=== PATIENT | male | born 1940 | race Caucasian/White ===

== ENCOUNTER 2018-12-06 11:32 | Inpatient (IN) ==
[2018-12-06] MEDS ORDERED: PROTONIX IV ONE (11:57)
[2018-12-06] MEDS ORDERED: SODIUM CHLORIDE 0.9% INJ ONE (11:57)
[2018-12-06] MEDS ORDERED: CARAFATE LIQUID PO ONE (11:57)
[2018-12-06 12:39] LABS: BASO# 0.02 X1000 (0.0-0.2); BASO% 0.2 % (0.0-0.8); EOS# 0.04 X1000 (0.0-0.7); EOS% 0.4 % (0.0-10.0); HEMATOCRIT 37.4 % (42.0-52.0); IMM GRAN# 0.02 X1000 (0.0-0.04); IMM GRAN% 0.2 % (0.0-0.5); LYMPH# 1.85 X1000 (1.2-3.4); LYMPH% 17.9 % (20.5-51.1); MCHC 34.8 g/dL (33-37); MCV 92.1 FL (81-99); MONO% 7.7 % (1.7-9.3); MPV 10.3 FL (7.4-10.4); NEUT# 7.61 X1000 (1.4-6.5); NEUT% 73.6 % (42.2-75.2); PLT 269 X1000 (130-400); RBC 4.06 XMIL (4.7-6.1); RDW 12.4 % (11.5-14.5); WBC 10.34 X1000 (4.8-10.8)
[2018-12-06 12:59] LABS: ALBUMIN 3.8 g/dL (3.5-5.0); CALCIUM 9.1 mg/dL (8.8-10.2); CREATININE 1.3 mg/dL (0.7-1.2); POTASSIUM 3.6 mmol/L (3.5-5.1); TOTAL PROTEIN 7.5 g/dL (6.3-8.3)
[2018-12-06 13:09] LABS: INR 1.1; PROTIME 14.8 Seconds (11.0-16.0)
[2018-12-06] MEDS ORDERED: ZOFRAN IV PRN ×2 (13:35→16:42)
--- NOTE | 2018-12-06 13:56 | PROVIDER DOCUMENTATION ---
This chart was entered by Earlene Suh Scribe, acting as scribe for Carolyn Rosales MD. HPI-Abdominal Pain/GI Problem - General Chief Complaint: Rectal Bleeding Stated Complaint: BLOOD IN STOOL Time Seen by Provider: 12/06/18 11:39 Source: patient, family () Allergies/Adverse Reactions: Patient Allergies Allergy/AdvReac Type Severity Reaction Status Date / Time lisinopril Allergy SWELLING Verified 12/06/18 12:18 Home Medications: Home Medication List Medication Instructions Recorded Confirmed Last Taken Type Aspirin [Aspirin EC] 325 mg PO DAILY 10/21/17 12/06/18 07/11/18 History PRAVAstatin [Pravachol] 40 mg PO QHS 10/21/17 12/06/18 07/12/18 History Carvedilol [Coreg] 6.25 mg PO BID 01/16/18 12/06/18 07/14/18 05:00 History Fluconazole [Diflucan] 100 mg PO DAILY #22 tab 07/14/18 Unknown Rx Omeprazole [Prilosec] 40 mg PO BID #60 capsule.dr 07/14/18 12/06/18 Unknown Rx Sucralfate [Carafate] 1 gm PO 4XDAY #120 tab 07/14/18 12/06/18 Unknown Rx Isosorbide Mononitrate [Isosorbide 30 mg PO DAILY 12/06/18 12/06/18 Unknown History Mononitrate ER] - History of Present Illness-ABD Nature of Presenting Problems: 77 yowm presents to the ed with c/o rectal bleeding with abdominal pain onset 4 days prior. pt is nontoxic in appearance pt takes 325 ASA daily Abdominal Pain Onset Location: reports: epigastric Pain Radiation: reports: no radiation Quality of Pain: reports: cramping Severity in ED: reports: mild Onset/Duration: reports: 4 days ago Timing: reports: still present Activities at Onset: reports: light activity Exposure to sick contacts?: No Modifying Factors: improves with: nothing Associated Symptoms: reports: EENT symptoms (trouble with swallowing), genitourinary problems (rectal bleeding), nausea. denies: back/neck pain, chest pain, cough, shortness of breath, swelling/mass in abdomen, vomiting Last BM: this morning Dark Stools Present?: reports: black, tarry Rectal Bleeding: reports: blood mixed with stool # of Diarrhea Episodes: 0 Rectal Pain: reports: none # of Vomiting Episodes: 0 Emesis Description: reports: none Bruising or Bleeding Gums?: No Similar Symptoms Previously?: Yes (had GI bleed in past) Recently seen or treated by another doctor?: No Review of Systems - Adult - REVIEW OF SYSTEMS - ADULT Constitutional: denies: chills, fever Eyes: reports: no symptoms reported Ears, Nose, Mouth & Throat: reports: see HPI, other (hard to swallow). denies: throat pain, throat swelling Cardiovascular: reports: no symptoms reported Respiratory: denies: cough, shortness of breath, wheezing Gastrointestinal: reports: see HPI, abdominal pain (epigastric), nausea, rectal bleeding. denies: diarrhea, vomiting Genitourinary: reports: no symptoms reported Musculoskeletal: denies: back pain, neck pain Integumentary: reports: no symptoms reported Neurological: denies: dizziness/vertigo, headache/migraines Psychiatric: reports: no symptoms reported Endocrine: reports: no symptoms reported Hematologic/Lymphatic: reports: no symptoms reported Allergic/Immunologic: reports: no symptoms reported All Other Systems: Reviewed and Negative Past History - Adult - PAST MEDICAL HISTORY-ADULT Review of Records: reports: Old Records Reviewed, Nursing Assessment Review, Medications Reviewed, Social history reviewed & non-contributory. Major Childhood Illnesses: reports: denies history Cardiovascular: reports: cardiac disease, HTN, hyperlipidemia Respiratory: reports: denies history Gastrointestinal: reports: GERD, GI bleed, ulcer Genitourinary: reports: denies history Musculoskeletal: reports: denies history Neurological: reports: denies history Endocrine/Immune: reports: denies history Other Conditions: reports: denies history - PRIOR SURGERIES/PROCEDURES Surgical/Procedure History: reports: CABG, back/neck - IMMUNIZATION STATUS Childhood Immunizations: See Nurse Assessment Flu Vaccine: See Nurse Assessment - FAMILY HISTORY Family History: reviewed, not pertinent - SOCIAL HISTORY Smoking: denies Substance Use: denies Living Situation: family Physical Exam-General - PHYSICAL EXAM-ADULT Initial Vital Signs Reviewed: Yes - CONSTITUTIONAL General Appearance: appears well, alert, no apparent distress - EYES Eyes: PERRL/EOMI, pink conjunctivae - HEAD, EARS, NOSE, MOUTH & THROAT HENMT: moist mucous membranes, normal ENT inspection, TMs normal, pharynx normal - NECK Neck: non-tender, full range of motion, supple, normal inspection - RESPIRATORY Respiratory: chest non-tender, lungs clear, normal breath sounds - CARDIOVASCULAR Cardiovascular: normal peripheral pulses, tachycardia (108) - GASTROINTESTINAL (ABDOMEN) Abdominal Exam: normal bowel sounds, soft, tenderness (epigastric), other - GENITOURINARY Male Genitalia: deferred Rectal Exam: normal rectal tone, black stool, other (black tarry stool per rectum). negative: normal exam, hemorrhoids, tenderness Hemoccult Exam: heme positive stool - LYMPHATIC Lymphatic: no adenopathy - MUSCULOSKELETAL Back Exam: normal inspection, no CVA tenderness, no vertebral tenderness Extremity: normal range of motion, non-tender, normal inspection, no pedal edema , no calf tenderness, normal capillary refill, pelvis stable - SKIN Integumentary: normal color, normal turgor, warm/dry - NEUROLOGIC Neurologic: grossly normal, no motor/sensory deficits - PSYCHIATRIC Psych/Mental Status: normal mood/affect, normal thought content, normal thought process, oriented x 3 Progress - PLAN OF CARE/RESULTS Progress/Plan/Lab Results: Vital Signs - 8 hr 12/06/18 11:34 12/06/18 11:52 Pulse Rate 108 H 90 Respiratory Rate 18 24 Blood Pressure 139/87 152/100 O2 Sat by Pulse Oximetry 98 95 Orders Category Date Time Status CBC WITH ELECTRONIC DIFF [HEME] Stat Lab 12/06/18 11:55 Uncollected COMPREHENSIVE METABOLIC PANEL [CHEM] Stat Lab 12/06/18 11:55 Ordered PROTIME WITH INR [COAG] Stat Lab 12/06/18 11:56 Uncollected PTT HEPARIN PROTOCOL [COAG] Stat Lab 12/06/18 11:56 Ordered Result Diagrams: 12/06/18 12:00 12/06/18 12:00 - CONSULTS/PCP/HOSPITALIST Notification #1 *Consult/PCP/Hospitalist*: Arielle Time Discussed: 13:14 Reason/Comments: admission Consult Disposition: Admit Departure - Departure Date of Disposition Decision: 12/06/18 Time of Disposition Decision: 13:10 DIAGNOSIS: Upper GI bleed Disposition: ADMITTED INPATIENT 09 Certified Medical Emergency: Emergent Condition: Good Referrals and Follow-Ups: Eron Finney [Primary Care Provider] - - Critical Care Note This patient required my direct & personal management of CC.: Yes Total Time (mins): 39 Critical Care Statement: This patient required my direct personal management to treat or rule out processes, the absence of which, could potentiallly result in sudden, clinically significant life or limb threatening deterioration. Attestation - Physician/ BENJY Attestation Patient care was provided by Advanced Practice Provider:: Yes Advanced Practice Provider documentation review:: The Mid-level provider documentation, treatment plan and medical decision making was reviewed by the physician who agrees with all treatment and medical decision making by the MLP. The physician spent face to face time with patient:: No Advanced Practice Provider documentation review:: Supervising physician onsite and consulted in the evaluation and care of this patient. The physician did not have a face to face encounter with the patient. This chart was documented by the indicated scribe, (Earlene Suh Scribe) and accurately reflects the services I performed and decisions made by me, Carolyn Rosales MD, as attested by the provider's signature.
[2018-12-06] MEDS ORDERED: PROTONIX 80 MG in NS 80 ML IV SCH (14:00)
[2018-12-06] MEDS ORDERED: NS 1,000 ML IV ONE (14:56)
[2018-12-06 15:06] LABS: HEMATOCRIT 34.9 % (42.0-52.0); HEMOGLOBIN 12.1 g/dL (14.0-18.0)
[2018-12-06] MEDS ORDERED: CARAFATE PO SCH ×2 (16:00→21:00)
[2018-12-06 17:36] LABS: HEMATOCRIT 35.8 % (42.0-52.0); HEMOGLOBIN 12.2 g/dL (14.0-18.0)
[2018-12-06] MEDS: PROTONIX 80 MG in NS 80 ML IV SCH (19:03)
--- NOTE | 2018-12-06 19:54 | HISTORY AND PHYSICAL ---
ADDENDUM - HISTORY AND PHYSICAL: Patient seen and examined by myself. Full note dictated and discussed with nurse practitioner. Patient presented to the hospital, noted to have some epigastric pain. States he has had ulcers past after having an EGD. States that the pain started a couple of days ago. He started having some black tarry stools. Denies any bright red emesis of bright red stool. Denies any fevers or chills. We will admit him to the hospital. Follow serial hemoglobin and hematocrit. Currently hemoglobin is 13, although his BUN is elevated. We will follow. Please see full note. cc: Jony Guzmán MD
[2018-12-06 21:05] LABS: HEMATOCRIT 34.6 % (42.0-52.0); HEMOGLOBIN 11.9 g/dL (14.0-18.0)
--- NOTE | 2018-12-06 23:51 | HISTORY AND PHYSICAL ---
PRIMARY CARE PHYSICIAN: Eron Finney. FIELD ACCOUNT DIRECTOR: Mayra Jansen. CHIEF COMPLAINT: Melena. HISTORY OF PRESENT ILLNESS: This is a 77-year-old gentleman with a history of gastroesophageal reflux disease, coronary artery disease, hyperlipidemia, and prior GI bleed. He presents to the emergency room complaining of melena that started about 3 days ago. He did state that at the first of this he did have some red blood in his stools, but over the last 48 hours he has just had black, tarry stools. He has a history of Cabrera's esophagus, ulcerations in a hiatal hernia sac, a duodenal bulb ulcer. Repeat EGD in December of 2017 revealed Cabrera's with acute erosive esophagitis, gastroparesis as well as healing of gastric and duodenal ulcers. He underwent dilatation of Schatzki's ring. Once again an EGD was performed in January of 2018 and he was noted to have mild to moderate erosive gastritis with greater than 75% healing antral ulcers. In June of 2018, he was found to have Anca esophagitis as well as reflux esophagitis with 4 new superficial ulcers in the gastric body in the antrum along with duodenitis. PAST MEDICAL HISTORY: Gastroesophageal reflux disease, coronary artery disease , hyperlipidemia, hypertension, and GI as stated above. PAST SURGICAL HISTORY: Coronary artery bypass. SOCIAL HISTORY: He denies alcohol, tobacco, or illicit drug use. ALLERGIES: Lisinopril. HOME MEDICATIONS: A list will be obtained by the nursing staff. Once confirmed , we will review and restart as appropriate. REVIEW OF SYSTEMS: Discussed with patient with pertinent positives stated in the HPI. He denied any syncope, dizziness, chest pain, palpitations, any shortness of breath, cough , fever, chills, any nausea, vomiting, black or bloody vomitus, any hematuria, dysuria, frequency , urgency. PHYSICAL EXAMINATION: GENERAL: This is a 77-year-old gentleman who is sitting up in the bed in no distress. VITAL SIGNS: Blood pressure is 147/91 with heart rate of 90, respirations are 20, temperature is 97.6 degrees, O2 saturations are 100% on 2 L nasal cannula. EYES: Pupils equal, round, react to light. EOMs are intact. Sclerae are anicteric. HENT: Head is normocephalic, atraumatic. Mucous membranes are moist. NECK: Supple. Trachea midline. CARDIOVASCULAR: Regular rate and rhythm. S1, S2 appreciated. He has no lower extremity edema with peripheral pulses palpable x4 extremities. PULMONARY: Breath sounds are clear with no increased work of breathing. Chest rises and falls symmetrically with respiration. GASTROINTESTINAL: Abdomen is soft, nontender, nondistended with bowel sounds in all 4 quadrants. GENITOURINARY: He denies any CVA or suprapubic tenderness. NEUROLOGIC: He is alert and oriented x3. SKIN: Warm and dry. LABS: WBC is 10.3 with a hemoglobin of 13, hematocrit 37.4, and platelets of 269,000. INR is 1.10. Sodium is 143, potassium 3.6, BUN 37, creatinine 1.3 with glucose of 105. ASSESSMENT AND PLAN: 1. Gastrointestinal bleed. The patient will be admitted to the [facility] floor at [facility] as there are no beds at [facility] to assure close monitoring until we are able to transfer him. Obtain serial hemoglobin and hematocrit, type and screen. full liquid diet. 2. Acute kidney injury. We will give IV hydration. We will hold any renal toxic medications and renal dose as appropriate. 3. Gastroesophageal reflux disease. 4. Hypertension. We will hold antihypertensives at present while we are monitoring and we will restart as needed. 5. History of duodenal and gastric ulcers with gastroparesis as well as erosive gastritis. We will start the patient on a Protonix drip. We will give Carafate q.6 hours. As stated above he will be transferred to [facility] when a bed becomes available for GI following. 6. For deep venous thrombosis prophylaxis, we will use SCDs. We will continue telemetry. CBC and CMP in the morning. Further treatments pending hospital course. Dictated by EDDIE Stevens for Jony Guzmán MD This chart was documented by, EDDIE Stevens and accurately reflects the services performed, treatment plan and medical decisions as attested by the providers signature Jony Guzmán MD. cc: EDDIE Stevens MD [facility]
[2018-12-07] MEDS: PROTONIX 80 MG in NS 80 ML IV SCH ×2 (03:10→18:02)
[2018-12-07 06:56] LABS: HEMATOCRIT 33.5 % (42.0-52.0); HEMOGLOBIN 11.3 g/dL (14.0-18.0); MCH 31.4 PG (27-31); MCHC 33.7 g/dL (33-37); MCV 93.1 FL (81-99); MPV 10.2 FL (7.4-10.4); RBC 3.6 XMIL (4.7-6.1); RDW 12.3 % (11.5-14.5); WBC 6.5 X1000 (4.8-10.8)
[2018-12-07 07:14] LABS: AGAP 9; ALBUMIN 3.2 g/dL (3.5-5.0); ALKALINE PHOSPHATASE 57 U/L (32-122); BUN 25 mg/dL (8-22); CALCIUM 8.3 mg/dL (8.8-10.2); CHLORIDE 107 mmol/L (98-107); COSMO 286; ESTIMATED GFR > 60; GLUCOSE 98 mg/dL (70-104); GOT 15 U/L (10-34); GPT 10 U/L (10-44); POTASSIUM 3.5 mmol/L (3.5-5.1); SODIUM 141 mmol/L (136-145); TCO2 26 mmol/L (25-35); TOTAL PROTEIN 6.5 g/dL (6.3-8.3)
[2018-12-07] MEDS ORDERED: CARAFATE PO SCH (09:00)
[2018-12-07] MEDS ORDERED: COREG PO SCH (09:00)
[2018-12-07] MEDS: IMDUR PO SCH (11:03)
[2018-12-07] MEDS: CARAFATE PO SCH ×2 (18:02→20:36)
[2018-12-07] MEDS: COREG PO SCH (20:36)
[2018-12-07] MEDS ORDERED: TYLENOL PO PRN (20:42)
[2018-12-07] MEDS ORDERED: PRAVACHOL PO SCH (21:00)
--- NOTE | 2018-12-08 03:20 | PROGRESS NOTE ---
DATE: 12/07/2018 SUBJECTIVE: Patient denies any further bleeding, hematemesis, hematochezia, melena. Denies any cough, congestion. States he does have some mild epigastric pain, but denies any pain in his foot. PHYSICAL EXAMINATION: Vital Signs: Temperature 97.7 degrees, pulse 93, respiratory 20, BP 143/98. General: Patient is awake, alert. He is very pleasant to talk with. HEENT: Normocephalic. Neck: Supple. CARDIOVASCULAR: Regular rate. No murmurs. Chest: Clear, nonlabored. Abdomen: Soft, nondistended. Extremities: Moves all extremities. ASSESSMENT: 1. Acute upper gastrointestinal bleed with melena, resolved. 2. Acute kidney injury, resolved. 3. Reflux. 4. Hypertension. PLAN: Of note, patient has a known history of gastric ulcers. He has been taking aspirin and I expect this is what caused his melena. Thankfully it has improved. He currently is in no distress. We will continue to hold all aspirin and anti-inflammatories. If his hemoglobin and hematocrit remain stable in the morning then we will advance his diet and hopefully home. cc: Jony Guzmán MD
[2018-12-08] MEDS: PROTONIX 80 MG in NS 80 ML IV SCH (06:09)
[2018-12-08 06:32] LABS: HEMATOCRIT 33.8 % (42.0-52.0); HEMOGLOBIN 11.3 g/dL (14.0-18.0); MCHC 33.4 g/dL (33-37); MCV 92.9 FL (81-99); MPV 10.2 FL (7.4-10.4); RBC 3.64 XMIL (4.7-6.1); RDW 12.3 % (11.5-14.5); WBC 6.08 X1000 (4.8-10.8)
[2018-12-08 06:53] LABS: AGAP 10; ALBUMIN 3.4 g/dL (3.5-5.0); ALKALINE PHOSPHATASE 61 U/L (32-122); BUN 17 mg/dL (8-22); CALCIUM 8.6 mg/dL (8.8-10.2); CHLORIDE 107 mmol/L (98-107); COSMO 283; ESTIMATED GFR > 60; GLUCOSE 103 mg/dL (70-104); GOT 15 U/L (10-34); GPT 10 U/L (10-44); POTASSIUM 3.5 mmol/L (3.5-5.1); SODIUM 141 mmol/L (136-145); TCO2 24 mmol/L (25-35); TOTAL PROTEIN 6.7 g/dL (6.3-8.3)
[2018-12-08 07:49] VITALS: BP 165/84
[2018-12-08] MEDS: IMDUR PO SCH (08:55)
[2018-12-08] MEDS: CARAFATE PO SCH (08:56)
[2018-12-08] MEDS: COREG PO SCH (08:56)
--- NOTE | 2018-12-08 10:35 | DISCHARGE SUMMARY ---
ADMISSION DATE: 12/06/2018 DISCHARGE DATE: 12/08/2018 DIAGNOSES: 1. Acute upper GI bleed with melena, resolved. 2. Acute kidney injury, resolved. 3. Gastroesophageal reflux disease. 4. History of duodenal and gastric ulcers. 5. Gastroparesis. DIAGNOSTICS: Stool for occult blood in the ER was positive. HOSPITAL COURSE: Mr. Arroyo presented to the emergency room complaining of some melena that had started about 3 days prior. He was placed on a Protonix drip, given Carafate. H &H were stable He has 1 stool which was dark. Today, he tolerated a GI soft diet well. He has no complaints and thankfully he is ready for discharge. DISCHARGE VITAL SIGNS: Blood pressure 165/80, heart rate of 80, respirations 18 , temperature is 98 degrees oral with room air saturations of 97 to 98%. DISCHARGE PHYSICAL EXAMINATION: Cardiovascular: Regular rate and rhythm. S1, S2 appreciated. Pulmonary: Breath sounds are clear with no increased work of breathing noted. Gastrointestinal: Abdomen is soft, nontender, and nondistended. Bowel sounds in all 4 quadrants. Neurologic: He is alert and oriented x3. DISCHARGE MEDICATIONS: 1. Carafate 1 g before meals and at bedtime. 2. Prilosec 40 mg p.o. b.i.d. 3. Isosorbide mononitrate 30 mg p.o. daily. 4. Coreg 6.25 p.o. b.i.d. 5. Pravachol 40 mg p.o. at bedtime. FOLLOWUP: 1. He needs to follow up with Dr. Jansen. They need to call her office and to schedule an appointment. 2. He has been instructed to call to be seen sooner or return to the ER for any syncope, dizziness, chest pain, palpitations, black or bloody vomitus or stools, recurrence of abdominal pain, any temperature greater than 101 or any hematuria, dysuria, frequency, or urgency. He is being discharged home in stable condition with family members. HE HAS BEEN TOLD TO AVOID ALL NSAIDS AND ASPIRIN. TIME SPENT: This is a greater than 30 minute discharge. Dictated by EDDIE Stevens for Jony Guzmán MD This chart was documented by, EDDIE Stevens and accurately reflects the services performed, treatment plan and medical decisions as attested by the providers signature Jony Guzmán MD. cc: EDDIE Stevens MD MTDD
--- NOTE | 2018-12-09 00:48 | DISCHARGE SUMMARY ---
ADMISSION DATE: 12/06/2018 DISCHARGE DATE: 12/08/2018 ADDENDUM: Patient seen and examined by myself. Full note dictated and discussed with nurse practitioner. On discharge, patient is awake, alert, currently in no respiratory distress. He has had no further bleeding since admission to the hospital. He has tolerated a regular diet. Therefore, he will be discharged home. cc: Jony Guzmán MD
[2018-12-09] MEDS ORDERED: PROTONIX IV SCH (18:00)
== END 2018-12-08 09:17 | disposition home or self-care (01) | DRG 378 ==
LOC: P.ED 11:32 → P.MEDSURG 11:33
PROVIDERS: ATTEND Family Medicine
CPT/HCPCS: 80053; 85014; 85018; 85025; 85027; 85610; 85730; 86850; 86900; 86901; 94761; 96374; 99284; A9270; C9113; J7030; S0164